=== PATIENT | female | born 1970 | race Two or more races ===

== ENCOUNTER 2024-08-21 05:46 | Day surgery (SDC) | payer OTHER ==
[~2024-08-21 05:46] MED LIST: IRBESARTAN-HCT1 EACH
[2024-08-21] MEDS ORDERED: IBU600 MG PO (10:15)
== END 2024-08-21 15:30 | disposition home or self-care (01) ==
LOC: CIR.AMB 05:46
PROVIDERS: ATTEND Obstetrics & Gynecology Gynecology
DX: N95.0 Postmenopausal bleeding (principal)